=== PATIENT | male | born 1940 | race Caucasian/White ===

== ENCOUNTER → 2018-06-28 17:05 | Outpatient (CLI) | payer OTHER, SELFPAY | PROVIDERS: PCP Student in an Organized Health Care Education/Training Program; Visit Provider Physician Assistant | DX: B37.0 Candidal stomatitis (principal) | CPT/HCPCS: 87070 ==

== ENCOUNTER → 2018-08-16 08:51 | Outpatient (CLI) | payer OTHER, SELFPAY ==
[2018-08-16 10:24] LABS: Hematocrit 46.5 % (41-53); Hemoglobin 15.5 g/dL (13.5-17.5); Mean Corpuscular HGB Conc 33.4 % (30-36); Mean Corpuscular Hemoglobin 30.8 PG (26-34); Mean Corpuscular Volume 92.2 fL (80-100); Platelet Count 227 X10^3/uL (150-400); Red Blood Cell Count 5.04 X10^6/uL (4.5-5.9); Red Cell Distribution Width 14.6 % (11.6-14.8); White Blood Cell Count 6.4 X10^3/uL (4.5-11.0)
[2018-08-16 10:47] LABS: Alanine Aminotransferase 28 IU/L (21-72); Albumin 4.3 g/dL (3.5-5.0); Albumin Globulin Ratio 1.5 (1.0-2.8); Alkaline Phosphatase 67 U/L (38-126); Aspartate Aminotransferase 26 IU/L (17-59); BUN Creatinine Ratio 16.7 (6-22); Bilirubin Total 0.9 mg/dL (0.2-1.3); Blood Urea Nitrogen 15 mg/dL (9-20); Calcium 9.5 mg/dL (8.4-10.2); Carbon Dioxide 28 mmol/L (22-32); Chloride 104 mmol/L (98-107); Cholesterol 173 mg/dL (140-199); Estimated Glomerular Filt Rate > 60.0 mL/min (>60); Globulin 2.9 g/dL (1.7-4.1); Glucose 134 mg/dL (80-110); HDL Cholesterol 47 mg/dL (40-60); HEMOLYSIS < 15 (0-50); LDL Cholesterol Calculated 106 mg/dL (<100); Potassium 4.7 mmol/L (3.4-5.1); Sodium 140 mmol/L (137-145); Total Protein 7.2 g/dL (6.3-8.2); Triglycerides 98 mg/dL (35-150)
[2018-08-16 11:03] LABS: Vitamin D 25 Hydroxy (D3) 31.6 ng/mL (30.0-100.0)
[2018-08-16 11:17] LABS: TSH w/ Reflex to FT4 4.25 uIU/mL (0.47-4.68)
[2018-08-16 11:35] LABS: Vitamin B12 373 pg/mL (239-931)
== END ==
PROVIDERS: PCP Student in an Organized Health Care Education/Training Program; Visit Provider Student in an Organized Health Care Education/Training Program
DX: E55.9 Vitamin D deficiency, unspecified (principal); G62.9 Polyneuropathy, unspecified; Z13.220 Encounter for screening for lipoid disorders
CPT/HCPCS: 36415; 80053; 80061; 82306; 82607; 84443; 85027

== ENCOUNTER 2018-11-18 22:39 | Emergency (ER) | payer OTHER, SELFPAY ==
[2018-11-18 22:40] VITALS: BP 158/103; PULSE 75; RESP 18; TEMP 36.4; O2SAT 95; BMI 29.0
--- NOTE | 2018-11-18 22:49 | DI.CT.S_ITS ---
PROCEDURE: CT HEAD/BRAIN WO CON INDICATIONS: head injury, +etoh TECHNIQUE: Noncontrast 4.5 mm thick angled axial sections acquired from the foramen magnum to the vertex, with coronal and sagittal reformats. For radiation dose reduction, the following was used: automated exposure control, adjustment of mA and/or kV according to patient size. COMPARISON: None. FINDINGS: Image quality: Excellent. CSF spaces: Basal cisterns are patent. No extra-axial fluid collections. The ventricles are symmetric in size and shape. Brain: No intracranial bleeds or masses. There is cerebral volume loss for age, with resultant ventricular and sulcal prominence. There are periventricular and deep white matter chronic small vessel ischemic changes. There is intracranial internal carotid artery and vertebral artery atherosclerosis. Skull and face: Calvarium and visualized facial bones appear intact, without suspicious lesions. Sinuses: Visualized sinuses and mastoids are clear. IMPRESSION: No acute intracranial disease process. Dictated by: Ara Valladares MD, PhD on 11/19/2018 at 7:30 Approved by: Ara Valladares MD, PhD on 11/19/2018 at 7:32
--- NOTE | 2018-11-18 22:49 | DI.CT.S_ITS ---
PROCEDURE: CT CERVICAL SPINE WO CON INDICATIONS: fall with head injury, +etoh TECHNIQUE: Noncontrast 3 mm thick sections acquired from the skull base to the T4 level. Sagittal and coronal reformats were then constructed. For radiation dose reduction, the following was used: automated exposure control, adjustment of mA and/or kV according to patient size. COMPARISON: None. FINDINGS: Image quality: Excellent. Bones: No fractures or dislocations. Visualized superior ribs are intact. Spine degenerative disc disease and facet arthropathy. Soft tissues: Prevertebral soft tissues are normal in thickness. No paravertebral hematomas. No apical pneumothoraces. IMPRESSION: No fracture. No osseous lesion. If symptoms and/or clinical suspicion for pathology persists, further assessment with repeat radiographs (7-10 days) or advanced imaging (e.g. CT, MRI or bone scan) may be helpful. Dictated by: Ara Valladares MD, PhD on 11/19/2018 at 8:08 Approved by: Ara Valladares MD, PhD on 11/19/2018 at 8:13
--- NOTE | 2018-11-18 22:49 | DI.CT.S_ITS ---
PROCEDURE: CT FACIAL BONES WO CON INDICATIONS: fall with facial injury TECHNIQUE: Noncontrast 2.5 mm thick axial images acquired from the mandible through the frontal sinuses, with coronal and sagittal reformatting. For radiation dose reduction, the following was used: automated exposure control, adjustment of mA and/or kV according to patient size. COMPARISON: None. FINDINGS: Image quality: Excellent. Bones and teeth: Orbital thakur are intact. Sinus thakur show no fracture or deformity. Nasal bones and septum are intact. Visualized portions of the mandible demonstrate no fractures or subluxation. Zygomatic arches are intact. Pterygoid plates are intact. Visualized portions of the skull base and auditory canals are intact. Sinuses: Paranasal sinuses are aerated, without fluid levels, mucosal thickening, or mucoceles. Mastoid air cells are aerated. Soft tissues: Mild left periorbital facial soft tissue swelling. No enlarged lymph nodes. No soft tissue lacerations or debris. Vascular: Visualized vascular structures appear normal in the absence of contrast. Bony vascular foramina and canals are intact. IMPRESSION: No fracture. Dictated by: Ara Valladares MD, PhD on 11/19/2018 at 7:32 Approved by: Ara Valladares MD, PhD on 11/19/2018 at 7:35
--- NOTE | 2018-11-18 23:04 | ED.FALL ---
HPI - Fall General Chief Complaint: Fall Stated Complaint: fall at dock into water, split upper lip Time Seen by Provider: 11/18/18 22:42 Source: patient Mode of arrival: ambulatory Limitations: no limitations History of Present Illness HPI Narrative: 78-year-old male with history of hypertension presents today with friend of his after tripping and falling off of a dock and hitting his face. He denies LOC, N/V nor head, neck or back pain. He did admittedly have a few alcoholic beverages tonight and was brought here by a friend. He did fall into the water but denies any chest pain, shortness of breath or cough. His tetanus is not current. He has a large laceration of his left upper lip and not to temporary teeth out. Additionally he has abrasion to his right anterior knee. Patient states the fall was purely mechanical and was walking in the dark on uneven narrow dock complaint: fall Onset (ago): hour(s) Fall from: standing Fall witnessed: yes, by family Place fall occurred: other Loss of consciousness: none Prolonged down time: no Symptoms prior to fall: none Context: tripped/slipped Location of injury: head and face Related Data Home Medications Medication Instructions Recorded Confirmed ASPIRIN (#ASPIRIN) 81 mg PO Q DAY #0 11/28/11 06/28/18 Fish Oil (#FISH OIL) 1 iu PO Q DAY #0 11/28/11 06/28/18 MULTIVITAMIN (One Daily 1 tab PO Q DAY #0 11/28/11 06/28/18 Multivitamin) ASCORBIC ACID (VITAMIN C) 1,000 mg PO QDAY #0 11/29/11 06/28/18 Previous Rx's Medication Instructions Recorded acyclovir 800 mg PO BID #28 06/18/12 sildenafil [Viagra] 0 PO QHS PRN #10 06/18/12 pantoprazole 40 mg tablet,delayed 40 mg PO DAILY #14 tab 03/14/18 release amoxicillin-pot clavulanate 1 tab PO BID #20 tab 11/19/18 [Augmentin] Allergies Allergy/AdvReac Type Severity Reaction Status Date / Time No Known Drug Allergies Allergy Verified 06/28/18 13:34 Review of Systems Constitutional Denies chills, Denies fever(s), Denies lethargy and Denies weakness Eyes Denies change in vision, Denies eye discharge, Denies irritation and Denies loss of vision ENT Ears, Nose, Mouth, and Throat: Denies change in voice, Denies neck pain and Denies sore throat Cardiovascular Denies chest pain, Denies irregular heart rhythm, Denies lightheadedness, Denies palpitations, Denies dyspnea, Denies dyspnea on exertion and Denies orthopnea Respiratory Denies cough, Denies dyspnea, Denies dyspnea on exertion and Denies wheezing Gastrointestinal Gastrointestinal: Denies abdominal pain, Denies change in bowel habits, Denies diarrhea, Denies nausea and Denies vomiting Genitourinary Denies hematuria, Denies flank pain, Denies urinary incontinence and Denies urinary urgency Musculoskeletal Denies neck pain Integumentary/Breasts Denies pruritus, Denies erythema, Denies rash and Reports wounds Neurologic Denies confusion, Denies loss of vision and Denies weakness Psychiatric Denies anxiety, Denies confusion, Denies depression, Denies homicidal ideation and Denies suicidal ideation Endocrine Denies palpitations Hematologic/Lymphatic Denies easy bruising Allergic/Immunologic Denies wheezing Exam Narrative Exam Narrative: GENERAL: [78] year old patient appears stated age. Well-nourished, well-developed patient, in mild distress. GCS 15, alert and oriented x3 HEAD: Small abrasion above left brow, 2.5 cm gaping laceration of left upper lip, crossing the vermilion border and appears through and through. No sign of depressed skull fracture EYES: Pupils equal round and reactive. Extraocular motions intact. No scleral icterus. No injection or drainage. ENT: Nose without bleeding, purulent drainage. Throat without erythema, tonsillar hypertrophy or exudate. Airway patent. NECK: Trachea midline. Non tender CARDIOVASCULAR: Regular rate and rhythm without murmurs, gallops, or rubs. RESPIRATORY: Clear to auscultation. Breath sounds equal bilaterally. No wheezes, rales, or rhonchi. GASTROINTESTINAL: Abdomen soft, non-tender, nondistended. EXTREMITIES: No edema or joint tenderness. BACK: Nontender without deformity or crepitance. No flank tenderness. NEURO: AOx3. SKIN: No rash or erythema of visible areas Initial Vital Signs Initial Vital Signs: Vital Signs Temperature 97.6 F 11/18/18 22:40 Pulse Rate 75 11/18/18 22:40 Respiratory Rate 18 11/18/18 22:40 Blood Pressure 158/103 H 11/18/18 22:40 Pulse Oximetry 95 11/18/18 22:40 [facility] Medical History Primary HSV infection of mouth (Chronic) Surgical History History of colonoscopy with polypectomy (Resolved 10/26/11) History of esophagogastroduodenoscopy (EGD) (Resolved 02/12/14) History of left cataract surgery (Resolved 09/16/15) History of right cataract surgery (Resolved 09/02/15) Social History Smoking Status: Former smoker Social History Smoking Status: Former smoker Procedures Laceration Repair Laceration 1: Site: lip Side (If applicable): left Size (cm): 3 Description: irregular and clean Depth: involves muscle layer and [id number] Local Anesthetic: lidocaine 1% Amount of anesthesia used (mL): 4 Pre-repair: wound explored and irrigated extensively Skin layer closed with: nylon Size (cm): 6-0 Technique: simple, interrupted Subcutaneous layer closed with: vicryl Size: 5-0 Nerve Block Nerve Block 1: Time out performed: Yes Local Anesthetic: lidocaine 1% Amount of anesthesia used (mL): 4 Side: left Intraoral Nerve Block: infraorbital Procedure Successful: Yes Patient Tolerated Procedure: Well Complications: none Course Orders Ordered: Discontinued Medications Amoxicillin/Clavulanate Potassium (Augmentin 875-125 Mg) 1 tab PO NOW ONE Stop: 11/19/18 00:52 Last Admin: 11/19/18 00:56 Dose: 1 tab Diphtheria/Tetanus/Acell Pertussis (Adacel) 0.5 ml IM .ONCE ONE Stop: 11/18/18 23:04 Last Admin: 11/18/18 23:28 Dose: 0.5 ml Lidocaine HCl (Xylocaine 2%) 1 ml SUBCUT NOW ONE Stop: 11/19/18 00:18 Vital Signs - 8 hr 11/18/18 22:40 Temperature 97.6 F Pulse Rate 75 Respiratory Rate 18 Blood Pressure 158/103 H Pulse Oximetry 95 MDM - Fall Imaging Data CT scan - head: Radiologist's impression: Sander Nichole [address] [address] [address] Scan Report Signed Patient: Sander Nichole WMR#: [id number] : 1940Acct:[id number] Age/Sex: 78 / MDate of Service: 11/18/18 Loc: ED Accession Number: [id number] Procedure: CT head/brain wo con Ordering Provider: Earl Boyd D.O. PROCEDURE: CT HEAD/BRAIN WO CON INDICATIONS: head injury, +etoh TECHNIQUE: Noncontrast 4.5 mm thick angled axial sections acquired from the foramen magnum to the vertex, with coronal and sagittal reformats. For radiation dose reduction, the following was used: automated exposure control, adjustment of mA and/or kV according to patient size. COMPARISON: None. FINDINGS: Image quality: Excellent. CSF spaces: Basal cisterns are patent. No extra-axial fluid collections. The ventricles are symmetric in size and shape. Brain: No intracranial bleeds or masses. There is cerebral volume loss for age, with resultant ventricular and sulcal prominence. There are periventricular and deep white matter chronic small vessel ischemic changes. There is intracranial internal carotid artery and vertebral artery atherosclerosis. Skull and face: Calvarium and visualized facial bones appear intact, without suspicious lesions. Sinuses: Visualized sinuses and mastoids are clear. IMPRESSION: No acute intracranial disease process. Dictated by: Ara Valladares MD, PhD on 11/19/2018 at 7:30 Approved by: Ara Valladares MD, PhD on 11/19/2018 at 7:32 Facial Bones: Radiologist's impression: [address] [address] [address] Scan Report Signed Patient: Sander Nichole WMR#: [id number] : 1940Acct:[id number] Age/Sex: 78 / MDate of Service: 11/18/18 Loc: ED Accession Number: [id number] Procedure: CT facial bones wo con Ordering Provider: Earl Boyd D.O. PROCEDURE: CT FACIAL BONES WO CON INDICATIONS: fall with facial injury TECHNIQUE: Noncontrast 2.5 mm thick axial images acquired from the mandible through the frontal sinuses, with coronal and sagittal reformatting. For radiation dose reduction, the following was used: automated exposure control, adjustment of mA and/or kV according to patient size. COMPARISON: None. FINDINGS: Image quality: Excellent. Bones and teeth: Orbital thakur are intact. Sinus thakur show no fracture or deformity. Nasal bones and septum are intact. Visualized portions of the mandible demonstrate no fractures or subluxation. Zygomatic arches are intact. Pterygoid plates are intact. Visualized portions of the skull base and auditory canals are intact. Sinuses: Paranasal sinuses are aerated, without fluid levels, mucosal thickening, or mucoceles. Mastoid air cells are aerated. Soft tissues: Mild left periorbital facial soft tissue swelling. No enlarged lymph nodes. No soft tissue lacerations or debris. Vascular: Visualized vascular structures appear normal in the absence of contrast. Bony vascular foramina and canals are intact. IMPRESSION: No fracture. Dictated by: Ara Valladares MD, PhD on 11/19/2018 at 7:32 Approved by: Ara Valladares MD, PhD on 11/19/2018 at 7:35 C Spine: Radiologist's impression: [place] [address] CT Scan Report Signed Patient: Sander Nichole WMR#: [id number] : 1940Acct:[id number] Age/Sex: 78 / MDate of Service: 11/18/18 Loc: ED Accession Number: [id number] Procedure: CT cervical spine wo con Ordering Provider: Earl Boyd D.O. PROCEDURE: CT CERVICAL SPINE WO CON INDICATIONS: fall with head injury, +etoh TECHNIQUE: Noncontrast 3 mm thick sections acquired from the skull base to the T4 level. Sagittal and coronal reformats were then constructed. For radiation dose reduction, the following was used: automated exposure control, adjustment of mA and/or kV according to patient size. COMPARISON: None. FINDINGS: Image quality: Excellent. Bones: No fractures or dislocations. Visualized superior ribs are intact. Spine degenerative disc disease and facet arthropathy. Soft tissues: Prevertebral soft tissues are normal in thickness. No paravertebral hematomas. No apical pneumothoraces. IMPRESSION: No fracture. No osseous lesion. If symptoms and/or clinical suspicion for pathology persists, further assessment with repeat radiographs (7-10 days) or advanced imaging (e.g. CT, MRI or bone scan) may be helpful. Dictated by: Ara Valladares MD, PhD on 11/19/2018 at 8:08 Approved by: Ara Valladares MD, PhD on 11/19/2018 at 8:13 [facility] Narrative Medical decision making narrative: 78-year-old male with fall and complex facial laceration. He has full recall, GCS 15, negative imaging and successful repair. He has full capacity, speaks clearly and ambulates with a steady gait. He leaves with a friend who is driving. He has had all of his questions answered to his apparent satisfaction and understands return precautions Discharge Plan Departure Patient Disposition: Home Clinical Impression: Complex laceration of circumoral region of face Contusion of knee, right Qualifiers: Encounter type: initial encounter Qualified Code(s): S80.01XA - Contusion of right knee, initial encounter Discharge Date/Time: 11/19/18 01:02 Interventions: ED Discharge Assessment Last Done: 11/19/18 01:01 Instructions: DI for Laceration Repair Activity Restrictions/Additional Instructions: *You have been diagnosed with [ facial laceration ] *What to do: *Take medications as directed: Prescription was sent to [facility] *Follow up with your primary care provider in 2-3 days, call for an appointment. Let them know you were seen in the Emergency Department and that we ask that you be seen in follow up. Sutures need to come out in 5-7 days *Return to ER if you should have any new, worsening or concerning symptoms Prescriptions: New amoxicillin-pot clavulanate [Augmentin] 875-125 mg tablet 1 tab PO BID Qty: 20 RF: 0 No Action ASPIRIN (#ASPIRIN) 81 mg PO Q DAY Qty: 0 RF: 0 MULTIVITAMIN (One Daily Multivitamin) 1 tab PO Q DAY Qty: 0 RF: 0 Fish Oil (#FISH OIL) 1 iu PO Q DAY Qty: 0 RF: 0 ASCORBIC ACID (VITAMIN C) 1,000 mg PO QDAY Qty: 0 RF: 0 sildenafil [Viagra] 100 MG tablet PO QHS PRN Qty: 10 RF: 3 acyclovir 800 MG tablet 800 mg PO BID Qty: 28 RF: 3 pantoprazole 40 mg tablet,delayed release (DR/EC) 40 mg PO DAILY Qty: 14 RF: 0 Referrals: Thai Hobbs MD [Primary Care Provider] -
[2018-11-18] MEDS: TET,DIPH,PERTUSS(ACELL),VAC/PF 0.5 ML SYRINGE IM (23:28)
--- NOTE | 2018-11-18 23:57 | PC.NURSE ---
lip laceration is through and through
[2018-11-19] MEDS: AMOXICILLIN/CLAV 875/125 MG 1 TAB PO (00:56)
[2018-11-19 01:01] VITALS: BP 134/74; PULSE 90; RESP 13; O2SAT 98
== END 2018-11-19 01:02 | disposition home or self-care (01) ==
PROVIDERS: Emergency Provider Emergency Medicine; PCP Student in an Organized Health Care Education/Training Program
DX: S01.81XA Laceration without foreign body of other part of head, initial encounter (principal); S80.01XA Contusion of right knee, initial encounter; Z23 Encounter for immunization
CPT/HCPCS: 12013; 64402; 70450; 70486; 72125; 90471; 99282; 99283; 90715

== ENCOUNTER → 2020-06-15 11:06 | Outpatient (CLI) | payer OTHER, SELFPAY ==
[2020-06-15 11:47] LABS: Add Manual Diff / Slide Review NO; Basophils Absolute Auto 100 /uL (0-100); Basophils Percent Auto 1.1 % (0-2); Eosinophils Absolute Auto 500 /uL (0-450); Eosinophils Percent Auto 9.7 % (2-4); Hematocrit 44.7 % (41-53); Hemoglobin 14.8 g/dL (13.5-17.5); Lymphocytes Absolute Auto 1800 /uL (1100-4500); Mean Corpuscular HGB Conc 33.1 % (30-36); Mean Corpuscular Hemoglobin 30.8 PG (26-34); Mean Corpuscular Volume 93.2 fL (80-100); Monocytes Absolute Auto 500 /uL (0-900); Monocytes Percent Auto 9.4 % (3-14); Neutrophils Absolute Auto 2600 /uL (1500-7000); Neutrophils Percent Auto 47.8 % (50-75); Platelet Count 201 X10^3/uL (150-400); Red Blood Cell Count 4.79 X10^6/uL (4.5-5.9); Red Cell Distribution Width 14.3 % (11.6-14.8); White Blood Cell Count 5.5 X10^3/uL (4.5-11.0)
[2020-06-15 12:16] LABS: Alanine Aminotransferase 18 IU/L (<50); Albumin 4.2 g/dL (3.5-5.0); Albumin Globulin Ratio 1.6 (1.0-2.8); Alkaline Phosphatase 66 U/L (38-126); Aspartate Aminotransferase 29 IU/L (17-59); BUN Creatinine Ratio 17.4 (6-22); Bilirubin Total 0.5 mg/dL (0.2-1.3); Blood Urea Nitrogen 16 mg/dL (9-20); Calcium 9.8 mg/dL (8.4-10.2); Carbon Dioxide 31 mmol/L (22-32); Chloride 104 mmol/L (98-107); Cholesterol 174 mg/dL (140-199); Estimated Glomerular Filt Rate > 60.0 mL/min (>60); Globulin 2.6 g/dL (1.7-4.1); Glucose 111 mg/dL (80-110); HDL Cholesterol 56 mg/dL (40-60); HEMOLYSIS < 15 (0-50); LDL Cholesterol Calculated 102 mg/dL (<100); Potassium 4.7 mmol/L (3.4-5.1); Sodium 139 mmol/L (137-145); Total Protein 6.8 g/dL (6.3-8.2); Triglycerides 82 mg/dL (35-150)
== END ==
PROVIDERS: PCP Student in an Organized Health Care Education/Training Program; Referring Provider Internal Medicine; Visit Provider Internal Medicine
DX: Z00.00 Encounter for general adult medical examination without abnormal findings (principal); C61 Malignant neoplasm of prostate; M15.0 Primary generalized (osteo)arthritis
CPT/HCPCS: 36415; 80053; 80061; 85025

== ENCOUNTER → 2021-10-25 11:33 | Outpatient (CLI) | payer OTHER, SELFPAY ==
--- NOTE | 2021-10-25 | DI.RAD.S_ITS ---
PROCEDURE: XR CHEST 2V INDICATIONS: Dyspnea, unspecified TECHNIQUE: 2 views of the chest were acquired. COMPARISON: None. FINDINGS: Surgical changes and devices: None. Lungs and pleura: Lungs are clear, aside from linear opacity involving the left perihilum. No pleural effusions or pneumothorax. Mediastinum: Mediastinal contours are normal. Heart size is normal. Bones and chest wall: No suspicious bony abnormalities. Soft tissues appear unremarkable. IMPRESSION: Linear opacity involving the left perihilar region of the left lung which may be related to atelectasis versus scarring; however developing pneumonia or mass cannot be excluded. Recommend clinical correlation and continued radiographic follow-up to assure resolution and/or temporal stability. Comparison with prior chest imaging would be helpful if available. Dictated by: Ta MARAVILLA Interpreted: Patricio Jorgensen MD on 10/25/2021 at 11:49 Transcribed by: MOODY on 10/25/2021 at 11:50 Approved by: Patricio Jorgensen M.D. on 10/25/2021 at 16:52
== END ==
PROVIDERS: PCP Student in an Organized Health Care Education/Training Program; Referring Provider Internal Medicine Cardiovascular Disease; Visit Provider Internal Medicine Cardiovascular Disease
DX: R06.00 Dyspnea, unspecified (principal)
CPT/HCPCS: 71046

== ENCOUNTER → 2021-10-26 08:59 | Outpatient (CLI) | payer OTHER, SELFPAY ==
[2021-10-26 09:51] LABS: Add Manual Diff / Slide Review NO; Basophils Absolute Auto 100 /uL (0-100); Eosinophils Absolute Auto 400 /uL (0-450); Eosinophils Percent Auto 6.8 % (2-4); Hematocrit 41.5 % (41-53); Hemoglobin 14.3 g/dL (13.5-17.5); Lymphocytes Absolute Auto 1300 /uL (1100-4500); Mean Corpuscular HGB Conc 34.4 % (30-36); Mean Corpuscular Hemoglobin 31.3 PG (26-34); Mean Corpuscular Volume 90.9 fL (80-100); Monocytes Absolute Auto 500 /uL (0-900); Monocytes Percent Auto 8.6 % (3-14); Neutrophils Absolute Auto 3900 /uL (1500-7000); Neutrophils Percent Auto 62.6 % (50-75); Platelet Count 178 X10^3/uL (150-400); Red Blood Cell Count 4.57 X10^6/uL (4.5-5.9); Red Cell Distribution Width 14.5 % (11.6-14.8); White Blood Cell Count 6.2 X10^3/uL (4.5-11.0)
[2021-10-26 10:20] LABS: BUN Creatinine Ratio 15.3 (6-22); Blood Urea Nitrogen 13 mg/dL (9-20); Calcium 9.3 mg/dL (8.4-10.2); Carbon Dioxide 27 mmol/L (22-32); Chloride 106 mmol/L (98-107); Cholesterol 178 mg/dL (140-199); Estimated Glomerular Filt Rate > 60 mL/min (>60); Glucose 127 mg/dL (80-110); HDL Cholesterol 49 mg/dL (40-60); HEMOLYSIS < 15 (0-50); LDL Cholesterol Calculated 114 mg/dL (<100); Potassium 4.6 mmol/L (3.4-5.1); Sodium 141 mmol/L (137-145); Triglycerides 73 mg/dL (35-150)
== END ==
PROVIDERS: PCP Student in an Organized Health Care Education/Training Program; Referring Provider Internal Medicine Cardiovascular Disease; Visit Provider Internal Medicine Cardiovascular Disease
DX: R06.00 Dyspnea, unspecified (principal); Z00.00 Encounter for general adult medical examination without abnormal findings
CPT/HCPCS: 36415; 80048; 80061; 85025

== ENCOUNTER 2021-11-22 15:44 | Emergency (ER) | payer OTHER, SELFPAY ==
[2021-11-22] VITALS (21 sets, daily range): BP systolic 129–180; BP diastolic 64–86; PULSE 41–73; RESP 12–26; TEMP 36.5; O2SAT 92–99
--- NOTE | 2021-11-22 15:54 | DI.RAD.S_ITS ---
PROCEDURE: XR CHEST 1V INDICATIONS: chest pain TECHNIQUE: One view of the chest was acquired. COMPARISON: [facility], CR, XR CHEST 2V, 10/25/2021, 11:45. FINDINGS: Surgical changes and devices: External defibrillator pads overlying the patient. Lungs and pleura: Small platelike opacity in the left upper lobe is unchanged. Low lung volume. No pleural effusions or pneumothorax. Mediastinum: Mediastinal contours appear unchanged. Heart size is normal. Bones and chest wall: No suspicious bony lesions. Overlying soft tissues appear unremarkable. IMPRESSION: No new opacity identified. Low lung volumes. Small platelike opacity in the left upper lobe is unchanged. This could represent scarring. Less likely pneumonia. Consider further evaluation with CT of the chest. Dictated by: Latrell Vasquez M.D. on 11/22/2021 at 16:54 Approved by: Latrell Vasquez M.D. on 11/22/2021 at 16:56
--- NOTE | 2021-11-22 15:59 | ED_ITS ---
HPI - Dizziness <Earl Boyd DO - Last Filed: 11/23/21 13:23> General Chief Complaint: Dizziness Stated Complaint: Dizzy nausea low blood pressure Time Seen by Provider: 11/22/21 15:59 Source: patient Mode of arrival: Ambulatory History of Present Illness HPI Narrative: 81-year-old male nonsmoker without any known significant medical history, takes no chronic medications presents with his in the chief complaint of increasing episodes of dizziness and lightheadedness. He denies any obvious pattern such as standing, turning his head. He did denies any chest pain or shortness of breath. He occasionally gets nauseated. He often times gets bit sweaty and clammy, particularly when these episodes happen. He states that he is active and denies any exertional symptoms. He takes no medications. He r eports that he sees Dr. Mena with [facility] and recently had a stress test that went quite well. Related Data Home Medications Medication Instructions Recorded Confirmed Fish Oil (#FISH OIL) 1 iu PO Q DAY ##0 11/28/11 11/28/18 MULTIVITAMIN (One Daily 1 tab PO Q DAY ##0 11/28/11 11/28/18 Multivitamin) ASCORBIC ACID (VITAMIN C) 1,000 mg PO QDAY ##0 11/29/11 11/28/18 aspirin 81 mg tablet,delayed 81 mg PO DAILY 11/28/18 11/28/18 release Previous Rx's Medication Instructions Recorded acyclovir 800 mg tablet 800 mg PO BID #10 tabs 11/28/18 hydrocodone 5 mg-acetaminophen 325 1 tab PO Q6H PRN pain #10 tabs 11/28/18 mg tablet Allergies Allergy/AdvReac Type Severity Reaction Status Date / Time No Known Drug Allergies Allergy Verified 11/28/18 15:23 Review of Systems <DO Jacque Aleman Last Filed: 11/23/21 13:23> Review of Systems Narrative: GENERAL: Denies chills, fatigue, malaise, fever, sweats. HEENT: Denies sinus pain, ear pain, sore throat, difficulty swallowing, dizziness. RESPIRATORY: Denies dyspnea, cough, wheezing, hemoptysis, sputum. CARDIOVASCULAR: See HPI GASTROINTESTINAL: Denies nausea, vomiting, abdominal pain, diarrhea, constipation, melena. : Denies dysuria, frequency, incontinence, hematuria, urinary retention. MUSCULOSKELETAL: denies weakness, joint pain, or bony pain SKIN: Denies rash, skin lesions, or other NEUROLOGIC: Denies weakness, headache, numbness, change in speech, confusion, seizures, incoordination. PSYCHIATRIC: No concerning psychosocial issues. 12 point review of systems is negative except for those stated above Patient History <Earl Boyd DO - Last Filed: 11/23/21 13:23> Medical History (Updated 11/22/21 @ 22:32 by Treasure Florentino MD) Primary HSV infection of mouth Surgical History History of colonoscopy with polypectomy (10/26/11) History of esophagogastroduodenoscopy (EGD) (02/12/14) History of left cataract surgery (09/16/15) History of right cataract surgery (09/02/15) Social History Smoking Status: Former smoker Smoking Status: Former smoker alcohol intake frequency: a few times a month Substance Use Type: marijuana Exam <Earl Boyd DO - Last Filed: 11/23/21 13:23> Initial Vital Signs Initial Vital Signs: Vital Signs Temperature 97.7 F 11/22/21 15:47 Pulse Rate 46 L 11/22/21 15:47 Respiratory Rate 11/22/21 15:47 Blood Pressure 180/86 H 11/22/21 15:47 Pulse Oximetry 99 11/22/21 15:47 Oxygen Delivery Method 11/22/21 15:47 <Treasure Florentino MD - Last Filed: 11/23/21 02:15> Initial Vital Signs Initial Vital Signs: Vital Signs Temperature 97.7 F 11/22/21 15:47 Pulse Rate 46 L 11/22/21 15:47 Respiratory Rate 11/22/21 15:47 Blood Pressure 180/86 H 11/22/21 15:47 Pulse Oximetry 99 11/22/21 15:47 Oxygen Delivery Method 11/22/21 15:47 Course <Earl Boyd DO - Last Filed: 11/23/21 13:23> Orders Ordered: ED Orders 11/22/21 15:54 XR chest 1V Stat 11/22/21 15:58 EKG-12 Lead Stat 11/22/21 16:05 Complete Blood Count AUTO DIFF Stat Comprehensive Metabolic Panel Stat Lipase Stat Magnesium Stat TSH [Thyroid Stimulating Hormone] Stat Troponin & CK Cardiac Panel Stat 11/22/21 16:25 EKG-12 Lead Routine 11/22/21 16:35 COVID19 -Nasal RAPID/Pre-Proc Stat Consultations Consultation #1: call cardiology Dr. Romero. Vital Signs Vital signs: Vital Signs - 8 hr 11/22/21 18:30 11/22/21 18:30 11/22/21 19:00 Pulse Rate 41 L Respiratory Rate 14 Blood Pressure 144/70 H 143/68 H Pulse Oximetry 96 11/22/21 19:00 11/22/21 19:30 11/22/21 19:30 Pulse Rate 65 70 Respiratory Rate 12 20 Blood Pressure 152/78 H Pulse Oximetry 96 94 11/22/21 20:00 11/22/21 20:00 11/22/21 20:30 Pulse Rate 71 Respiratory Rate 13 Blood Pressure 147/79 H 135/70 Pulse Oximetry 94 11/22/21 20:30 11/22/21 21:00 11/22/21 21:00 Pulse Rate 69 70 Respiratory Rate 18 25 H Blood Pressure 129/77 Pulse Oximetry 94 95 11/22/21 21:30 11/22/21 21:31 11/22/21 21:31 Pulse Rate 69 71 Respiratory Rate 26 H 18 Blood Pressure 147/86 H Pulse Oximetry 96 95 11/22/21 22:00 11/22/21 22:00 11/22/21 22:30 Pulse Rate 71 Respiratory Rate 20 Blood Pressure 159/79 H 151/71 H Pulse Oximetry 93 11/22/21 22:30 11/22/21 23:00 11/22/21 23:00 Pulse Rate 56 L 73 Respiratory Rate 25 H 15 Blood Pressure 149/64 H Pulse Oximetry 95 92 11/22/21 23:30 11/22/21 23:30 11/23/21 00:00 Pulse Rate 71 Respiratory Rate 16 Blood Pressure 161/79 H 149/67 H Pulse Oximetry 94 11/23/21 00:00 11/23/21 00:30 11/23/21 00:30 Pulse Rate 72 70 Respiratory Rate 15 11 L Blood Pressure 139/78 Pulse Oximetry 93 96 <Treasure Florentino MD - Last Filed: 11/23/21 02:15> Orders Ordered: ED Orders 11/22/21 15:54 XR chest 1V Stat 11/22/21 15:58 EKG-12 Lead Stat 11/22/21 16:05 Complete Blood Count AUTO DIFF Stat Comprehensive Metabolic Panel Stat Lipase Stat Magnesium Stat TSH [Thyroid Stimulating Hormone] Stat Troponin & CK Cardiac Panel Stat 11/22/21 16:25 EKG-12 Lead Routine 11/22/21 16:35 COVID19 -Nasal RAPID/Pre-Proc Stat Vital Signs Vital signs: Vital Signs - 8 hr 11/22/21 18:30 11/22/21 18:30 11/22/21 19:00 Pulse Rate 41 L Respiratory Rate 14 Blood Pressure 144/70 H 143/68 H Pulse Oximetry 96 11/22/21 19:00 11/22/21 19:30 11/22/21 19:30 Pulse Rate 65 70 Respiratory Rate 12 20 Blood Pressure 152/78 H Pulse Oximetry 96 94 11/22/21 20:00 11/22/21 20:00 11/22/21 20:30 Pulse Rate 71 Respiratory Rate 13 Blood Pressure 147/79 H 135/70 Pulse Oximetry 94 11/22/21 20:30 11/22/21 21:00 11/22/21 21:00 Pulse Rate 69 70 Respiratory Rate 18 25 H Blood Pressure 129/77 Pulse Oximetry 94 95 11/22/21 21:30 11/22/21 21:31 11/22/21 21:31 Pulse Rate 69 71 Respiratory Rate 26 H 18 Blood Pressure 147/86 H Pulse Oximetry 96 95 11/22/21 22:00 11/22/21 22:00 11/22/21 22:30 Pulse Rate 71 Respiratory Rate 20 Blood Pressure 159/79 H 151/71 H Pulse Oximetry 93 11/22/21 22:30 11/22/21 23:00 11/22/21 23:00 Pulse Rate 56 L 73 Respiratory Rate 25 H 15 Blood Pressure 149/64 H Pulse Oximetry 95 92 11/22/21 23:30 11/22/21 23:30 11/23/21 00:00 Pulse Rate 71 Respiratory Rate 16 Blood Pressure 161/79 H 149/67 H Pulse Oximetry 94 11/23/21 00:00 11/23/21 00:30 11/23/21 00:30 Pulse Rate 72 70 Respiratory Rate 15 11 L Blood Pressure 139/78 Pulse Oximetry 93 96 MDM - Dizziness <Eral Boyd, DO - Last Filed: 11/23/21 13:23> Lab Data Result diagrams: 11/22/21 16:05 11/22/21 16:05 Labs: Lab Results 11/22/21 11/22/21 11/22/21 Range/Units 16:05 16:05 16:05 WBC 7.8 (4.5-11.0) X10^3/uL RBC 4.81 (4.5-5.9) X10^6/uL Hgb 15.0 (13.5-17.5) g/dL Hct 43.5 (41-53) % MCV 90.4 (80-100) fL MCH 31.1 (26-34) PG MCHC 34.4 (30-36) % RDW 14.3 (11.6-14.8) % Plt Count 200 (150-400) X10^3/uL Neut % (Auto) 62.3 (50-75) % Lymph % (Auto) 23.3 L (25-40) % [place] % (Auto) 8.7 (3-14) % Eos % (Auto) 5.2 H (2-4) % Baso % (Auto) 0.5 (0-2) % Neut # (Auto) 4800 (6943-6548) /uL Lymph # (Auto) 1800 (5280-8429) /uL [place] # (Auto) 700 (0-900) /uL Eos # (Auto) 400 (0-450) /uL Baso # (Auto) 0 (0-100) /uL Sodium 138 (137-145) mmol/L Potassium 4.5 (3.4-5.1) mmol/L Chloride 106 (98-107) mmol/L Carbon Dioxide 26 (22-32) mmol/L BUN 15 (9-20) mg/dL Creatinine 1.01 (0.66-1.25) mg/dL Estimated GFR > 60 (>60) mL/min BUN/Creatinine Ratio 14.9 (6-22) Glucose 146 H (80-110) mg/dL Calcium 9.6 (8.4-10.2) mg/dL Magnesium 2.1 (1.6-2.3) mg/dL Total Bilirubin 0.6 (0.2-1.3) mg/dL AST 36 (17-59) IU/L ALT 27 (<50) IU/L Alkaline Phosphatase 65 (38-126) U/L Total Creatine Kinase 178 H (55-170) U/L CK-MB (CK-2) 2.41 H (<2.37) ng/mL CK-MB (CK-2) Rel Index 1.4 L (1.5-5.0) % Troponin I < 0.012 (0.01-0.034) ng/mL Total Protein 7.4 (6.3-8.2) g/dL Albumin 4.3 (3.5-5.0) g/dL Globulin 3.1 (1.7-4.1) g/dL Albumin/Globulin Ratio 1.4 (1.0-2.8) Lipase 145 (23-300) U/L TSH 3.24 (0.47-4.68) uIU/mL SARS-CoV-2 (PCR) (Negative) 11/22/21 Range/Units 16:35 WBC (4.5-11.0) X10^3/uL RBC (4.5-5.9) X10^6/uL Hgb (13.5-17.5) g/dL Hct (41-53) % MCV (80-100) fL MCH (26-34) PG MCHC (30-36) % RDW (11.6-14.8) % Plt Count (150-400) X10^3/uL Neut % (Auto) (50-75) % Lymph % (Auto) (25-40) % [place] % (Auto) (3-14) % Eos % (Auto) (2-4) % Baso % (Auto) (0-2) % Neut # (Auto) (4478-0610) /uL Lymph # (Auto) (1630-6226) /uL [place] # (Auto) (0-900) /uL Eos # (Auto) (0-450) /uL Baso # (Auto) (0-100) /uL Sodium (137-145) mmol/L Potassium (3.4-5.1) mmol/L Chloride (98-107) mmol/L Carbon Dioxide (22-32) mmol/L BUN (9-20) mg/dL Creatinine (0.66-1.25) mg/dL Estimated GFR (>60) mL/min BUN/Creatinine Ratio (6-22) Glucose (80-110) mg/dL Calcium (8.4-10.2) mg/dL Magnesium (1.6-2.3) mg/dL Total Bilirubin (0.2-1.3) mg/dL AST (17-59) IU/L ALT (<50) IU/L Alkaline Phosphatase (38-126) U/L Total Creatine Kinase (55-170) U/L CK-MB (CK-2) (<2.37) ng/mL CK-MB (CK-2) Rel Index (1.5-5.0) % Troponin I (0.01-0.034) ng/mL Total Protein (6.3-8.2) g/dL Albumin (3.5-5.0) g/dL Globulin (1.7-4.1) g/dL Albumin/Globulin Ratio (1.0-2.8) Lipase (23-300) U/L TSH (0.47-4.68) uIU/mL SARS-CoV-2 (PCR) Negative (Negative) Imaging Data Chest x-ray: Radiologist's Impression: Sander Nichole??81??M??1940 ? Allergy/Adv: No Known Drug Allergies Close Chest X-Ray (Signed) Latrell Vasquez - 11/22/21 Chest X-Ray (Signed) Patricio Jorgensen - 10/25/[address] (Signed) Ara Valladares - 11/18/[address] (Signed) Ara Valladares - 11/18/[address] (Signed) Ara Valladares - 11/18/18 Launch?[address] [address] XRay Report Signed Patient: Sander Nichole MR#: [id number] : 1940 Acct:[id number] Age/Sex: 81 / M Date of Service: 11/22/21 Loc: ED Accession Number: [id number] ?? Procedure: XR chest 1V Ordering Provider: Irene,Earl D.O. PROCEDURE:? XR CHEST 1V ? INDICATIONS:? chest pain ? TECHNIQUE:? One view of the chest was acquired.? ? COMPARISON:? [facility], CR, XR CHEST 2V, 10/25/2021, 11:45. ? FINDINGS:? ? Surgical changes and devices:? External defibrillator pads overlying the patient. ? Lungs and pleura:? Small platelike opacity in the left upper lobe is unchanged.? Low lung volume.? No pleural effusions or pneumothorax.? ? Mediastinum:? Mediastinal contours appear unchanged.? Heart size is normal.? ? Bones and chest wall:? No suspicious bony lesions.? Overlying soft tissues appear unremarkable.? ? IMPRESSION:? No new opacity identified.? Low lung volumes. ? Small platelike opacity in the left upper lobe is unchanged.? This could represent scarring.? Less likely pneumonia. ? Consider further evaluation with CT of the chest. ? ? Dictated by: Latrell Vasquez M.D. on 11/22/2021 at 16:54 ? ? Approved by: Latrell Vasquez M.D. on 11/22/2021 at 16:56 ? ECG Data Interpretation: [1558] sinus bradycardia with rate of 47 with increasing ND interval suggestive second-degree type 1 block. No evidence of ectopy or ischemia, no obvious ST elevations, depressions, T-wave abnormality 1625 sinus bradycardia. 3rd degree AV block MDM Narrative Medical decision making narrative: Patient continues to have appropriate blood pressures and is awake, alert and oriented. I have been in close contact with on-call Cardiology at [facility]. Upon further inspection of the initial EKG it is likely that he was in a third- degree at that time but P waves lined up in such a fashion that they were buried under the T-waves. That being said, he is on the list at [facility] with likely transfer in the morning. I have spoken with Dr. Novak and he is reviewed the EKG and agrees with the current plan and treatment. <Treasure Florentino MD - Last Filed: 11/23/21 02:15> Lab Data Labs: Lab Results 11/22/21 11/22/21 11/22/21 Range/Units 16:05 16:05 16:05 WBC 7.8 (4.5-11.0) X10^3/uL RBC 4.81 (4.5-5.9) X10^6/uL Hgb 15.0 (13.5-17.5) g/dL Hct 43.5 (41-53) % MCV 90.4 (80-100) fL MCH 31.1 (26-34) PG MCHC 34.4 (30-36) % RDW 14.3 (11.6-14.8) % Plt Count 200 (150-400) X10^3/uL Neut % (Auto) 62.3 (50-75) % Lymph % (Auto) 23.3 L (25-40) % [place] % (Auto) 8.7 (3-14) % Eos % (Auto) 5.2 H (2-4) % Baso % (Auto) 0.5 (0-2) % Neut # (Auto) 4800 (5934-4066) /uL Lymph # (Auto) 1800 (7498-6533) /uL [place] # (Auto) 700 (0-900) /uL Eos # (Auto) 400 (0-450) /uL Baso # (Auto) 0 (0-100) /uL Sodium 138 (137-145) mmol/L Potassium 4.5 (3.4-5.1) mmol/L Chloride 106 (98-107) mmol/L Carbon Dioxide 26 (22-32) mmol/L BUN 15 (9-20) mg/dL Creatinine 1.01 (0.66-1.25) mg/dL Estimated GFR > 60 (>60) mL/min BUN/Creatinine Ratio 14.9 (6-22) Glucose 146 H (80-110) mg/dL Calcium 9.6 (8.4-10.2) mg/dL Magnesium 2.1 (1.6-2.3) mg/dL Total Bilirubin 0.6 (0.2-1.3) mg/dL AST 36 (17-59) IU/L ALT 27 (<50) IU/L Alkaline Phosphatase 65 (38-126) U/L Total Creatine Kinase 178 H (55-170) U/L CK-MB (CK-2) 2.41 H (<2.37) ng/mL CK-MB (CK-2) Rel Index 1.4 L (1.5-5.0) % Troponin I < 0.012 (0.01-0.034) ng/mL Total Protein 7.4 (6.3-8.2) g/dL Albumin 4.3 (3.5-5.0) g/dL Globulin 3.1 (1.7-4.1) g/dL Albumin/Globulin Ratio 1.4 (1.0-2.8) Lipase 145 (23-300) U/L TSH 3.24 (0.47-4.68) uIU/mL SARS-CoV-2 (PCR) (Negative) 11/22/21 Range/Units 16:35 WBC (4.5-11.0) X10^3/uL RBC (4.5-5.9) X10^6/uL Hgb (13.5-17.5) g/dL Hct (41-53) % MCV (80-100) fL MCH (26-34) PG MCHC (30-36) % RDW (11.6-14.8) % Plt Count (150-400) X10^3/uL Neut % (Auto) (50-75) % Lymph % (Auto) (25-40) % [place] % (Auto) (3-14) % Eos % (Auto) (2-4) % Baso % (Auto) (0-2) % Neut # (Auto) (8054-1454) /uL Lymph # (Auto) (8711-5947) /uL [place] # (Auto) (0-900) /uL Eos # (Auto) (0-450) /uL Baso # (Auto) (0-100) /uL Sodium (137-145) mmol/L Potassium (3.4-5.1) mmol/L Chloride (98-107) mmol/L Carbon Dioxide (22-32) mmol/L BUN (9-20) mg/dL Creatinine (0.66-1.25) mg/dL Estimated GFR (>60) mL/min BUN/Creatinine Ratio (6-22) Glucose (80-110) mg/dL Calcium (8.4-10.2) mg/dL Magnesium (1.6-2.3) mg/dL Total Bilirubin (0.2-1.3) mg/dL AST (17-59) IU/L ALT (<50) IU/L Alkaline Phosphatase (38-126) U/L Total Creatine Kinase (55-170) U/L CK-MB (CK-2) (<2.37) ng/mL CK-MB (CK-2) Rel Index (1.5-5.0) % Troponin I (0.01-0.034) ng/mL Total Protein (6.3-8.2) g/dL Albumin (3.5-5.0) g/dL Globulin (1.7-4.1) g/dL Albumin/Globulin Ratio (1.0-2.8) Lipase (23-300) U/L TSH (0.47-4.68) uIU/mL SARS-CoV-2 (PCR) Negative (Negative) Imaging Data Chest x-ray: Radiologist's Impression: PROCEDURE:? XR CHEST 1V ? INDICATIONS:? chest pain ? TECHNIQUE:? One view of the chest was acquired.? ? COMPARISON:? [facility], , XR CHEST 2V, 10/25/2021, 11:45. ? FINDINGS:? ? Surgical changes and devices:? External defibrillator pads overlying the patient. ? Lungs and pleura:? Small platelike opacity in the left upper lobe is unchanged.? Low lung volume.? No pleural effusions or pneumothorax.? ? Mediastinum:? Mediastinal contours appear unchanged.? Heart size is normal.? ? Bones and chest wall:? No suspicious bony lesions.? Overlying soft tissues appear unremarkable.? ? IMPRESSION:? No new opacity identified.? Low lung volumes. ? Small platelike opacity in the left upper lobe is unchanged.? This could represent scarring.? Less likely pneumonia. ? Consider further evaluation with CT of the chest. ? ? Dictated by: Latrell Vasquez M.D. on 11/22/2021 at 16:54 ? ? Approved by: Latrell Vasquez M.D. on 11/22/2021 at 16:56 ? MDM Narrative Medical decision making narrative: Patient continues to have appropriate blood pressures and is awake, alert and oriented. I have been in close contact with on-call Cardiology at [facility]. Upon further inspection of the initial EKG it is likely that he was in a third- degree at that time but P waves lined up in such a fashion that they were buried under the T-waves. That being said, he is on the list at [facility] with likely transfer in the morning. I have spoken with Dr. Novak and he is reviewed the EKG and agrees with the current plan and treatment. No additional interventions have been required in the emergency department. Even with the rates down into the mid 30s he has tolerated this an atropine has not been initiated. External pacing has not been required. 858pm spoke with transfer center, [facility] in [place]. They do have beds available. Spoke with Dr. Ford, cardiology. Accepted patient. Will talk with the hospitalist. 1030 Dr Lee, hospitalist. Accepts transfer Discharge Plan Departure Patient Disposition: [facility] Clinical Impression: AV heart block, Postural dizziness with near syncope Prescriptions: No Action MULTIVITAMIN (One Daily Multivitamin) 1 tab PO Q DAY Qty: 0 Fish Oil (#FISH OIL) 1 iu PO Q DAY Qty: 0 ASCORBIC ACID (VITAMIN C) 1,000 mg PO QDAY Qty: 0 hydrocodone-acetaminophen 5-325 mg tablet 1 tab PO Q6H PRN (Reason: pain) Qty: 10 0RF acyclovir 800 mg tablet 800 mg PO BID Qty: 10 11RF aspirin 81 mg tablet,delayed release (DR/EC) 81 mg PO DAILY Referrals: Thai Hobbs MD [Primary Care Provider] -
[2021-11-22 16:18] LABS: Add Manual Diff / Slide Review NO; Basophils Absolute Auto 0 /uL (0-100); Basophils Percent Auto 0.5 % (0-2); Eosinophils Absolute Auto 400 /uL (0-450); Eosinophils Percent Auto 5.2 % (2-4); Hematocrit 43.5 % (41-53); Lymphocytes Absolute Auto 1800 /uL (1100-4500); Lymphocytes Percent Auto 23.3 % (25-40); Mean Corpuscular HGB Conc 34.4 % (30-36); Mean Corpuscular Hemoglobin 31.1 PG (26-34); Mean Corpuscular Volume 90.4 fL (80-100); Monocytes Absolute Auto 700 /uL (0-900); Monocytes Percent Auto 8.7 % (3-14); Neutrophils Absolute Auto 4800 /uL (1500-7000); Neutrophils Percent Auto 62.3 % (50-75); Platelet Count 200 X10^3/uL (150-400); Red Blood Cell Count 4.81 X10^6/uL (4.5-5.9); Red Cell Distribution Width 14.3 % (11.6-14.8); White Blood Cell Count 7.8 X10^3/uL (4.5-11.0)
[2021-11-22 16:40] LABS: Alanine Aminotransferase 27 IU/L (<50); Albumin 4.3 g/dL (3.5-5.0); Albumin Globulin Ratio 1.4 (1.0-2.8); Alkaline Phosphatase 65 U/L (38-126); Aspartate Aminotransferase 36 IU/L (17-59); BUN Creatinine Ratio 14.9 (6-22); Bilirubin Total 0.6 mg/dL (0.2-1.3); Blood Urea Nitrogen 15 mg/dL (9-20); Calcium 9.6 mg/dL (8.4-10.2); Carbon Dioxide 26 mmol/L (22-32); Chloride 106 mmol/L (98-107); Creatine Kinase 178 U/L (55-170); Estimated Glomerular Filt Rate > 60 mL/min (>60); Globulin 3.1 g/dL (1.7-4.1); Glucose 146 mg/dL (80-110); HEMOLYSIS < 15 (0-50); Lipase 145 U/L (23-300); Magnesium 2.1 mg/dL (1.6-2.3); Potassium 4.5 mmol/L (3.4-5.1); Sodium 138 mmol/L (137-145); Total Protein 7.4 g/dL (6.3-8.2)
--- NOTE | 2021-11-22 16:46 | PC.NURSE ---
Patient placed on pads and being monitored on code cart in case of need for external pacing per request from Dr. Boyd.
[2021-11-22 16:50] LABS: Troponin I < 0.012 ng/mL (0.01-0.034)
[2021-11-22 16:55] LABS: CKMB % Relative Index 1.4 % (1.5-5.0); Creatine Kinase MB 2.41 ng/mL (<2.37)
[2021-11-22 16:55] LABS: COVID19 -Nasal RAPID Negative (Negative)
[2021-11-22 18:24] LABS: Thyroid Stimulating Hormone 3.24 uIU/mL (0.47-4.68)
[2021-11-23] VITALS: BP 149/67; PULSE 72; RESP 15; O2SAT 93
[2021-11-23 00:30] VITALS: BP 139/78; PULSE 70; RESP 11; O2SAT 96
== END 2021-11-23 00:40 | disposition short-term general hospital (02) ==
PROVIDERS: Emergency Provider Emergency Medicine; PCP Student in an Organized Health Care Education/Training Program
DX: I44.30 Unspecified atrioventricular block (principal); R42 Dizziness and giddiness; R07.9 Chest pain, unspecified; Z20.822 Contact with and (suspected) exposure to COVID-19
CPT/HCPCS: 36415; 71045; 80053; 82550; 82553; 83690; 83735; 84443; 84484; 85025; 87635; 93005; 99284; 99285; 99291; 99292; C9803

== ENCOUNTER 2023-05-02 13:00 | Emergency (ER) | payer OTHER, SELFPAY ==
[2023-05-02] VITALS (10 sets, daily range): BP systolic 127–161; BP diastolic 65–80; PULSE 62–86; RESP 8–20; TEMP 36.7; O2SAT 95–99; BMI 29.1
--- NOTE | 2023-05-02 14:15 | DI.RAD.S_ITS ---
PROCEDURE: XR CHEST 1V INDICATIONS: Possible stroke TECHNIQUE: One view of the chest was acquired. COMPARISON: [facility], , XR CHEST 1V, 11/22/2021, 16:38. FINDINGS: Surgical changes and devices: Right-sided pacer. Lungs and pleura: Lungs are clear. No pleural effusions or pneumothorax. Mediastinum: Mediastinal contours appear normal. Heart size is normal. Bones and chest wall: No suspicious bony lesions. Overlying soft tissues appear unremarkable. IMPRESSION: No acute cardiopulmonary abnormality is seen. Dictated by: Shaneka De La Garza M.D. on 05/02/2023 at 14:36 Approved by: Shaneka De La Garza M.D. on 05/02/2023 at 14:36
--- NOTE | 2023-05-02 14:15 | DI.CT.S_ITS ---
PROCEDURE: CT HEAD/BRAIN WO CON INDICATIONS: alt vision, generalized weakness TECHNIQUE: Noncontrast 4.5 mm thick angled axial sections acquired from the foramen magnum to the vertex, with coronal and sagittal reformats. For radiation dose reduction, the following was used: automated exposure control, adjustment of mA and/or kV according to patient size. COMPARISON: [facility], CT, CT HEAD/BRAIN WO CON, 11/18/2018, 22:53. FINDINGS: Image quality: Diagnostic. CSF spaces: Basal cisterns are patent. No extra-axial fluid collections. The ventricles are symmetric in size and shape. Brain: No intracranial bleeds or masses. There is cerebral volume loss for age, with resultant ventricular and sulcal prominence. There are periventricular and deep white matter chronic small vessel ischemic changes. There is intracranial internal carotid artery atherosclerosis. Skull and face: Calvarium and visualized facial bones appear intact, without suspicious lesions. Sinuses: Visualized sinuses and mastoids are clear. IMPRESSION: No acute intracranial pathology. Dictated by: Shaneka De La Garza M.D. on 05/02/2023 at 14:41 Approved by: Shaneka De La Garza M.D. on 05/02/2023 at 14:42
[2023-05-02 15:00] LABS: Add Manual Diff / Slide Review NO; Basophils Absolute Auto 100 /uL (0-100); Eosinophils Absolute Auto 400 /uL (0-450); Eosinophils Percent Auto 4.4 % (2-4); Hematocrit 46.4 % (41-53); Hemoglobin 15.7 g/dL (13.5-17.5); Lymphocytes Absolute Auto 1600 /uL (1100-4500); Lymphocytes Percent Auto 19.9 % (25-40); Mean Corpuscular HGB Conc 33.8 % (30-36); Mean Corpuscular Hemoglobin 30.8 PG (26-34); Mean Corpuscular Volume 90.9 fL (80-100); Monocytes Absolute Auto 700 /uL (0-900); Monocytes Percent Auto 8.5 % (3-14); Neutrophils Absolute Auto 5300 /uL (1500-7000); Neutrophils Percent Auto 66.2 % (50-75); Platelet Count 210 X10^3/uL (150-400); Red Blood Cell Count 5.11 X10^6/uL (4.5-5.9); Red Cell Distribution Width 14.5 % (11.6-14.8)
[2023-05-02 15:06] LABS: Prothrombin Time 11.5 SECONDS (9.4-12.5)
[2023-05-02 15:08] LABS: PTT Partial Thromboplastin Tim 37 SECONDS (25.1-36.5)
[2023-05-02 15:12] LABS: Alanine Aminotransferase 32 IU/L (<50); Albumin 4.4 g/dL (3.5-5.0); Albumin Globulin Ratio 1.3 (1.0-2.8); Alkaline Phosphatase 64 U/L (38-126); Aspartate Aminotransferase 35 IU/L (17-59); BUN Creatinine Ratio 15.2 (6-22); Bilirubin Total 0.9 mg/dL (0.2-1.3); Blood Urea Nitrogen 14 mg/dL (9-20); Calcium 9.8 mg/dL (8.4-10.2); Carbon Dioxide 27 mmol/L (22-32); Chloride 103 mmol/L (98-107); Creatine Kinase 56 U/L (55-170); Estimated Glomerular Filt Rate > 60 mL/min (>60); Globulin 3.4 g/dL (1.7-4.1); Glucose 138 mg/dL (80-110); HEMOLYSIS < 15 (0-50); Magnesium 2.1 mg/dL (1.6-2.3); Potassium 4.3 mmol/L (3.4-5.1); Sodium 138 mmol/L (137-145); Total Protein 7.8 g/dL (6.3-8.2)
[2023-05-02 15:23] LABS: Troponin I < 0.012 ng/mL (0.01-0.034)
[2023-05-02 15:36] LABS: Influenza A - CEPHEID Flu A NEGATIVE (NEGATIVE); Influenza B - CEPHEID Flu B NEGATIVE (NEGATIVE); Respiratory Syncytial Virus Negative (Negative)
[2023-05-02 15:37] LABS: COVID-19 CEPHEID 4-PLEX PCR Negative (Negative)
--- NOTE | 2023-05-02 16:17 | ED.GENADULT ---
HPI - General Adult General Chief complaint: Weakness Stated complaint: blurry vision, not generally feeling well Time Seen by Provider: 05/02/23 15:17 Source: patient Mode of arrival: Ambulatory Limitations: no limitations History of Present Illness HPI narrative: A history of pacemaker and prior can not prostate. Patient presents with stating he has just not having the same level of that he had before. He states he had a little bit of blurriness in his vision yesterday lasted about an hour while watching TV. Other than that he states no dizziness no syncope. He has had decreased appetite he has had a lot of issues with insomnia recently in the past several weeks. He states he is still quite active he walks daily. He states he shovel his sidewalk and driveway several weeks ago and it is known and tolerated this without issue. He denies chest pain or pressure, no shortness of breath. Occasionally gets sweaty with activity but not regularly. He states no numbness, tingling or weakness that is new. Has some chronic neuropathy in his feet. No new weakness or difficulty with balance or movement. Patient states he has been told he had ADHD in the past. He has never been on medication for it. He did state that he had had some similar symptoms but was having syncope and lightheadedness in the past and ended up with a pacemaker. States he has not having syncope or lightheadedness but just feels sort of tired. No known drug allergies. No tobacco, occasional alcohol but has not had any for the last 3 or 4 weeks. Rare THC. Follows with primary care through the [facility], [place]. Related Data Home Medications Medication Instructions Recorded Confirmed Fish Oil (#FISH OIL) 1 iu PO Q DAY ##0 11/28/11 11/28/18 MULTIVITAMIN (One Daily 1 tab PO Q DAY ##0 11/28/11 11/28/18 Multivitamin) ASCORBIC ACID (VITAMIN C) 1,000 mg PO QDAY ##0 11/29/11 11/28/18 aspirin 81 mg tablet,delayed 81 mg PO DAILY 11/28/18 11/28/18 release Previous Rx's Medication Instructions Recorded acyclovir 800 mg tablet 800 mg PO BID #10 tabs 11/28/18 hydrocodone 5 mg-acetaminophen 325 1 tab PO Q6H PRN pain #10 tabs 11/28/18 mg tablet alprazolam 0.25 mg tablet (Xanax) 0.25 mg PO BEDTIME PRN sleep #5 05/02/23 tabs Allergies Allergy/AdvReac Type Severity Reaction Status Date / Time No Known Drug Allergies Allergy Verified 11/28/18 15:23 Review of Systems Review of Systems ROS Unobtainable: All systems reviewed & are unremarkable except as noted in HPI and below Patient History Medical History (Updated 05/02/23 @ 17:02 by Yareli Zavaleta DO) Primary HSV infection of mouth Surgical History History of esophagogastroduodenoscopy (EGD) (02/12/14) History of left cataract surgery (09/16/15) History of right cataract surgery (09/02/15) History of colonoscopy with polypectomy (10/26/11) Social History Smoking Status: Former smoker Smoking Status: Former smoker alcohol intake frequency: a few times a month Substance Use Type: marijuana Exam Narrative Exam Narrative: GEN: well nourished, well appearing male, alert and oriented x 3, patient appears to be in mild distress. HEENT: Atraumatic, pupils are equal round reactive to light, extraocular movements are intact, nares are clear, there is no conjunctival pallor. Throat is clear without any exudates, erythema, tonsillar enlargement or uvular deviation HEART: Regular rate and rhythm without murmur, clicks, rubs. No carotid bruits, pulses are equal in upper and lower extremities LUNGS:Lungs clear to auscultation, no wheezes, rales, crackles, chest moves symmetrically ABD:bowel sounds normal, soft, non-tender, no guarding, rebound, rigidity, no masses noted, no hepatosplenomegaly :No CVA tenderness MSCL: Non-tender, no muscle atrophy, muscles strength 5/5 upper and lower extremities, full range of motion, normal gait NEURO:CN 2-12 intact, sensation normal, finger nose finger test normal, heel mckeon test normal, romberg normal PSYCH: Slightly pressured speech, patient does jump from topic to topic but overall can continue conversation. Denies suicidal ideation, denies depression. Does sometimes feel anxious. Initial Vital Signs Initial Vital Signs: Vital Signs Temperature 98.1 F 05/02/23 13:10 Pulse Rate 86 05/02/23 13:10 Respiratory Rate 16 05/02/23 13:10 Blood Pressure 152/76 H 05/02/23 13:10 Pulse Oximetry 95 05/02/23 13:10 Oxygen Delivery Method Room Air 05/02/23 13:10 Scores NIH Stroke Scale Level of Conciousness: Alert, keenly responsive Ask month/age: Answers both questions correctly. Open/close eyes, close hand: Performs both tasks correctly Best gaze horizontal: Normal Visual story: No visual loss Facial palsy: Normal symetrical movement Left arm drift: No drift for full 10 sec Right arm drift: No drift for full 10 sec Left leg drift: No drift for full 5 sec Right leg drift: No drift for full 5 sec Limb ataxia: Absent Sensory on face/arms/legs: Normal, no sensory loss Best language: No aphasia, normal Dysarthria: Normal Extinction or inattention: No abnormality Total NIH Stroke scale score: 0 Course Orders Ordered: ED Orders 05/02/23 14:15 CT head/brain wo con Stat XR chest 1V Stat Complete Blood Count AUTO DIFF Stat Comprehensive Metabolic Panel Stat Magnesium Stat PTT Partial Thromboplastin Hawk Stat Prothrombin Time INR Stat Troponin & CK Cardiac Panel Stat EKG-12 Lead Stat 05/02/23 14:30 Covid-19 + FLU A/B + RSV - PCR Stat Discontinued Medications Ondansetron HCl (Ondansetron 4 Mg/2 Ml Inj) 4 mg IV NOW PRN PRN Reason: Nausea And Vomiting Ondansetron HCl (Ondansetron 4 Mg Odt) 4 mg SL NOW PRN PRN Reason: Nausea And Vomiting Vital Signs Vital signs: Vital Signs - 8 hr 05/02/23 13:10 05/02/23 14:40 05/02/23 14:44 Temperature 98.1 F Pulse Rate 86 70 73 Respiratory Rate 16 19 20 Blood Pressure 152/76 H Pulse Oximetry 95 99 Oxygen Delivery Method Room Air 05/02/23 14:44 05/02/23 15:00 05/02/23 15:00 Temperature Pulse Rate 66 Respiratory Rate 15 Blood Pressure 134/72 127/80 Pulse Oximetry 96 Oxygen Delivery Method 05/02/23 15:30 05/02/23 15:30 05/02/23 16:00 Temperature Pulse Rate 65 65 Respiratory Rate 10 L 14 Blood Pressure 137/69 Pulse Oximetry 96 98 Oxygen Delivery Method 05/02/23 16:01 05/02/23 16:01 05/02/23 16:30 Temperature Pulse Rate 63 64 Respiratory Rate 16 8 L Blood Pressure 161/77 H Pulse Oximetry 97 97 Oxygen Delivery Method 05/02/23 16:31 05/02/23 16:31 05/02/23 17:00 Temperature Pulse Rate 62 67 Respiratory Rate 9 L 12 Blood Pressure 133/65 Pulse Oximetry 98 98 Oxygen Delivery Method 05/02/23 17:00 Temperature Pulse Rate Respiratory Rate Blood Pressure 156/77 H Pulse Oximetry Oxygen Delivery Method Medical Decision Making Lab Data 05/02/23 14:15 05/02/23 14:15 Labs: Lab Results 05/02/23 05/02/23 Range/Units 14:15 14:30 WBC 8.0 (4.5-11.0) X10^3/uL RBC 5.11 (4.5-5.9) X10^6/uL Hgb 15.7 (13.5-17.5) g/dL Hct 46.4 (41-53) % MCV 90.9 (80-100) fL MCH 30.8 (26-34) PG MCHC 33.8 (30-36) % RDW 14.5 (11.6-14.8) % Plt Count 210 (150-400) X10^3/uL Neut % (Auto) 66.2 (50-75) % Lymph % (Auto) 19.9 L (25-40) % [facility] % (Auto) 8.5 (3-14) % Eos % (Auto) 4.4 H (2-4) % Baso % (Auto) 1.0 (0-2) % Neut # (Auto) 5300 (4620-1813) /uL Lymph # (Auto) 1600 (0540-0803) /uL [facility] [place] # (Auto) 700 (0-900) /uL Eos # (Auto) 400 (0-450) /uL Baso # (Auto) 100 (0-100) /uL PT 11.5 (9.4-12.5) SECONDS INR 1.0 (0.9-1.3) APTT 37 H (25.1-36.5) SECONDS Sodium 138 (137-145) mmol/L Potassium 4.3 (3.4-5.1) mmol/L Chloride 103 (98-107) mmol/L Carbon Dioxide 27 (22-32) mmol/L BUN 14 (9-20) mg/dL Creatinine 0.92 (0.66-1.25) mg/dL Estimated GFR > 60 (>60) mL/min BUN/Creatinine Ratio 15.2 (6-22) Glucose 138 H (80-110) mg/dL Calcium 9.8 (8.4-10.2) mg/dL Magnesium 2.1 (1.6-2.3) mg/dL Total Bilirubin 0.9 (0.2-1.3) mg/dL AST 35 (17-59) IU/L ALT 32 (<50) IU/L Alkaline Phosphatase 64 (38-126) U/L Total Creatine Kinase 56 (55-170) U/L Troponin I < 0.012 (0.01-0.034) ng/mL Total Protein 7.8 (6.3-8.2) g/dL Albumin 4.4 (3.5-5.0) g/dL Globulin 3.4 (1.7-4.1) g/dL Albumin/Globulin Ratio 1.3 (1.0-2.8) SARS-CoV-2 (PCR) Negative (Negative) Influenza A (RT-PCR) Flu a negative (NEGATIVE) Influenza B (RT-PCR) Flu b negative (NEGATIVE) RSV (PCR) Negative (Negative) Imaging Data CT scan - head: Radiologist's Impression: Sander Nichole??82??M??1940 ? Allergy/Adv: No Known Drug Allergies Close Head CT (Signed) Shaneka De La Garza - 05/02/23 Chest X-Ray (Signed) Shaneka De La Garza - 05/02/23 Chest X-Ray (Signed) Latrell Vasquez - 11/22/21 Telemetry Strips 11/22/21 Chest X-Ray (Signed) Patricio Jorgensen - 10/25/[address] (Signed) Ara Valladares - 11/18/[address] (Signed) Ara Valladares - 11/18/[address] (Signed) Ara Valladares - 11/18/[address] [address] [address] Scan Report Signed Patient: Sander Nichole MR#: [id number] : 1940 Acct:[id number] Age/Sex: 82 / M Date of Service: 05/02/23 Loc: ED Accession Number: [id number] Procedure: CT head/brain wo con Ordering Provider: Yareli Zavaleta D.O. PROCEDURE: CT HEAD/BRAIN WO CON INDICATIONS: alt vision, generalized weakness TECHNIQUE: Noncontrast 4.5 mm thick angled axial sections acquired from the foramen magnum to the vertex, with coronal and sagittal reformats. For radiation dose reduction, the following was used: automated exposure control, adjustment of mA and/or kV according to patient size. COMPARISON: [facility], CT, CT HEAD/BRAIN WO CON, 11/18/2018, 22:53. FINDINGS: Image quality: Diagnostic. CSF spaces: Basal cisterns are patent. No extra-axial fluid collections. The ventricles are symmetric in size and shape. Brain: No intracranial bleeds or masses. There is cerebral volume loss for age, with resultant ventricular and sulcal prominence. There are periventricular and deep white matter chronic small vessel ischemic changes. There is intracranial internal carotid artery atherosclerosis. Skull and face: Calvarium and visualized facial bones appear intact, without suspicious lesions. Sinuses: Visualized sinuses and mastoids are clear. IMPRESSION: No acute intracranial pathology. Dictated by: Shaneka De La Garza M.D. on 05/02/2023 at 14:41 Approved by: Shaneka De La Garza M.D. on 05/02/2023 at 14:42 Chest x-ray: Radiologist's Impression: Close Head CT (Signed) Shaneka De La Garza - 05/02/23 Chest X-Ray (Signed) Shaneka De La Garza - 05/02/23 Chest X-Ray (Signed) Latrell Vasquez - 11/22/21 Telemetry Strips 11/22/21 Chest X-Ray (Signed) Patricio Jorgensen - 10/25/[address] (Signed) Ara Valladares - 11/18/[address] (Signed) Ara Valladares - 11/18/[address] (Signed) Ara Valladares - 11/18/18 Launch?Image [address] [address] XRay Report Signed Patient: Sander Nichole MR#: [id number] : 1940 Acct:[id number] Age/Sex: 82 / M Date of Service: 05/02/23 Loc: ED Accession Number: [id number] Procedure: XR chest 1V Ordering Provider: Yareli Zavaleta D.O. PROCEDURE: XR CHEST 1V INDICATIONS: Possible stroke TECHNIQUE: One view of the chest was acquired. COMPARISON: [facility], , XR CHEST 1V, 11/22/2021, 16:38. FINDINGS: Surgical changes and devices: Right-sided pacer. Lungs and pleura: Lungs are clear. No pleural effusions or pneumothorax. Mediastinum: Mediastinal contours appear normal. Heart size is normal. Bones and chest wall: No suspicious bony lesions. Overlying soft tissues appear unremarkable. IMPRESSION: No acute cardiopulmonary abnormality is seen. Dictated by: Shaneka De La Garza M.D. on 05/02/2023 at 14:36 Approved by: Shaneka De La Garza M.D. on 05/02/2023 at 14:36 ECG Data Attestation: I personally reviewed and interpreted this ECG as follows: Prior ECG tracings: available for review Interpretation: Sinus rhythm rate of 65, [place] 154 QRS of 94 QTC 388. No acute ST changes appreciated. Patient has prior from 11/22/2021. [facility] Narrative Medical decision making narrative: 82-year-old male presents with complaint of feeling little bit under the weather or unwell. States he is able to perform all his normal activities but just feels list is a P. He did notice some blurred vision last night. He states no headaches no weakness no other neurologic changes. Patient does note he has had a lot of insomnia. He stays up very very late but sleeps very late into the day. So he is getting sleep but his sleep schedule has shifted. Patient is accompanied by his daughter. They do not report any significant memory issues, they do not know any significant anxiety or depression. Patient states he does sometimes feel little bit more anxious. No other acute neurologic changes appreciated between either 1 of them. Physical exam is overall negative, NIH is 0. CBC is appropriate with a white count of 8, hemoglobin of 15.7 platelets 210, INR is 1, renal function electrolytes are otherwise appropriate with a glucose of 138, negative LFTs, negative troponin, negative influenza/COVID RSV. Patient had a head CT which was negative also chest x-ray which was negative. EKG shows sinus rhythm, patient is not actively paced all does have a pacemaker placed. After discussion patient is felt appropriate for discharge home. He did ask about trying something for sleep such as benzodiazepine at a low dose. He does plan to follow up with primary care as well. Patient and I discussed risks versus benefits. He has tried multiple [id number] medications. Discharge Plan Departure Patient Disposition: Home Clinical Impression: Insomnia, Blurred vision Activity Restrictions/Additional Instructions: Please follow-up with your physician for recheck. You can try prescription for sleep. Take 1 tablet nightly. This medication can make you sleepy do not drive, perform hazardous activities or make any major decisions while taking it. Prescription sent to [facility] in [place]. Please return for severe headaches, sudden vision changes, new numbness, tingling or weakness, difficulty with movement, persistent vomiting, new chest pain or shortness of breath or other new or concerning changes. Prescriptions: New alprazolam [Xanax] 0.25 mg tablet 0.25 mg PO BEDTIME PRN (Reason: sleep) Qty: 5 0RF No Action MULTIVITAMIN (One Daily Multivitamin) 1 tab PO Q DAY Qty: 0 Fish Oil (#FISH OIL) 1 iu PO Q DAY Qty: 0 ASCORBIC ACID (VITAMIN C) 1,000 mg PO QDAY Qty: 0 hydrocodone-acetaminophen 5-325 mg tablet 1 tab PO Q6H PRN (Reason: pain) Qty: 10 0RF acyclovir 800 mg tablet 800 mg PO BID Qty: 10 11RF aspirin 81 mg tablet,delayed release (DR/EC) 81 mg PO DAILY Referrals: Miscellaneous,Doctor, MD [Primary Care Provider] - Stand Alone Forms: Patient Portal/API
== END 2023-05-02 17:13 | disposition home or self-care (01) ==
PROVIDERS: Emergency Provider Emergency Medicine
DX: G47.00 Insomnia, unspecified (principal); H53.8 Other visual disturbances; R29.700 NIHSS score 0; Z95.0 Presence of cardiac pacemaker; Z20.822 Contact with and (suspected) exposure to COVID-19
CPT/HCPCS: 0241U; 70450; 71045; 80053; 82550; 83735; 84484; 85025; 85610; 85730; 93005; 99284